=== PATIENT | male | born 1990 | race Hispanic/Latino ===

== ENCOUNTER 2024-01-26 14:21 | Emergency (ER) | payer SELFPAY ==
[2024-01-26 15:13] LABS: Absolute Basophils 0.1 K/uL (0-0.5); Absolute Eosinophils 0.2 K/uL (0-0.5); Absolute Lymphocytes (CBC) 1.9 K/uL (0.7-4.9); Absolute Monocytes 0.6 K/uL (0.1-1.3); Hematocrit 44.2 % (39.6-49.0); Lymphocytes % 24.3 % (15.3-44.8); MCH 30.8 pg (27.0-35.0); MCHC 34.1 g/dL (32.0-36.0); MCV 90.5 fL (80-100); MPV 9.8 fL (7.6-11.3); Monocytes % 7.9 % (3.3-12.3); Neutrophils % 63.8 % (41.7-73.7); Platelets 199 thou/uL (152-406); RBC Red Blood Cell Count 4.88 M/uL (4.33-5.43); Red Cell Distribution Width 12.6 % (12.1-15.2)
[2024-01-26 15:31] LABS: ALT/SGPT 33 U/L (16-61); AST/SGOT 20 U/L (15-37); Albumin 3.6 g/dL (3.4-5.0); Alkaline Phosphatase 64 U/L (45-117); Anion Gap 8.8 mEq/L (5.0-15.0); BUN Blood Urea Nitrogen 12 mg/dL (7-18); Bicarbonate 23 mEq/L (21-32); Bilirubin Total 0.3 mg/dL (0.2-1.0); Creatine Phosphokinase 53 U/L (39-308); Globulin 3.5 g/dL (2.3-3.5); Glomerular Filtration Rate 102 ml/min (=/>90); Glucose Level 88 mg/dL (74-106); Magnesium 1.9 mg/dL (1.6-2.4); Potassium 3.8 mEq/L (3.5-5.1); Protein, Total 7.1 g/dL (6.4-8.2); Sodium Level 138 mEq/L (136-145)
--- NOTE | 2024-01-26 15:34 | RAD REPORT ---
Procedure: Chest Single View HISTORY: Palpitations COMPARISON: none FINDINGS: The lungs appear clear of acute infiltrate. No significant pleural effusion noted. The heart is normal size. IMPRESSION: No acute abnormality is displayed.
[2024-01-26 15:36] LABS: Bilirubin Direct < 0.2 mg/dL (0-0.2); Bilirubin Indirect, Calculated 0.1 mg/dL (0.2-0.8); Troponin High Sensitivity < 3.0 pg/mL (<58.9)
--- NOTE | 2024-01-26 16:39 | EDPHYS ---
Physician Documentation [facility] Name: Malcolm Barrow Age: 33 yrs Sex: Male : 1990 Arrival Date: 01/26/2024 Time: 14:21 Bed 13 Private MD: ED Physician Medhat Meadows HPI: 01/25 16:49 This 33 yrs old Male presents to ER via EMS with complaints of Dizziness. 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 EMS reports pt was flush upon their arrival, but has improved after IV fluids. Pt states he still has a little cramping to abd and tingling in lips, but other symptoms have resolved. . Historical: - Allergies: 14:36 No Known Allergies; ss - Home Meds: 14:36 None [Active]; ss - PMHx: 14:36 None; ss - PSHx: 14:36 None; ss - Immunization history:: Adult Immunizations up to date. - Infectious Disease History:: Denies. - Social history:: Smoking status: Patient denies any tobacco usage or history of. ROS: 16:49 Constitutional: As per HPI kb Exam: 15:16 Constitutional: This is a well developed, well nourished patient who is awake, alert, kb and in no acute distress. Head/Face: Normocephalic, atraumatic. ENT: Moist Mucous membranes Cardiovascular: Regular rate Respiratory: Respirations even and unlabored. No increased work of breathing. Talking in full sentences Abdomen/GI: Soft, non-tender. No distention Skin: Warm, dry with normal turgor. Normal color. MS/ Extremity: Pulses equal, no cyanosis. Neurovascular intact. Full, normal range of motion. Neuro: Awake and alert, GCS 15, oriented to person, place, time, and situation. 15:16 ECG was reviewed by the Attending Physician. Vital Signs: 14:32 Pulse 67; Resp 16; Temp 97.9(TE); Pulse Ox 100% on R/A; Weight 61.23 kg; Height 5 ft. ss 11 in. ; Pain 3/10; 14:35 BP 118 / 82; Pulse 78; Resp 18; Pulse Ox 97% on R/A; ph 15:07 BP 107 / 86; Pulse 87; Resp 18; Pulse Ox 98% on R/A; ph 16:20 BP 137 / 85; Pulse 89; Resp 18; Pulse Ox 98% on R/A; ph 14:32 Body Mass Index 18.83 (61.23 kg, 180.34 cm) ss 14:32 Pain Scale: Adult ss MDM: 14:25 Medical Screening Exam initiated kb 16:51 Differential diagnosis: arrythmia, acute mi, dehydration, rhabdomyolysis, stress kb reaction. Data reviewed: vital signs, nurses notes. Historians other than the Patient: EMS: Intense EMS. Counseling: I had a detailed discussion with the patient and/or guardian regarding the historical points, exam findings, and any diagnostic results supporting the discharge/admit diagnosis, lab results, radiology results, the need for outpatient follow up, a family practitioner, to return to the emergency department if symptoms worsen or persist or if there are any questions or concerns that arise at home. ED course: Pt states he is back to normal, all symptoms have resolved. States he has been under more stress than normal at home. Denies chest pain, shortness of breath . 01/25 14:25 Order name: Basic Metabolic Panel; Complete Time: 15:47 kb 01/25 14:25 Order name: CBC with Diff; Complete Time: 15:16 kb 01/25 14:25 Order name: LFT's; Complete Time: 15:47 kb 01/25 14:25 Order name: Magnesium; Complete Time: 15:47 kb 01/25 14:25 Order name: Troponin HS; Complete Time: 15:47 kb 01/25 14:25 Order name: CPK; Complete Time: 15:47 kb 01/25 14:25 Order name: XRAY Chest (1 view); Complete Time: 15:47 kb 01/25 14:25 Order name: EKG; Complete Time: 14:26 kb 01/25 14:25 Order name: Cardiac monitoring; Complete Time: 15:06 kb 01/25 14:25 Order name: EKG - Nurse/Tech; Complete Time: 15:06 kb 01/25 14:25 Order name: IV Saline Lock; Complete Time: 15:06 kb 01/25 14:25 Order name: Labs collected and sent; Complete Time: 15:06 kb 01/25 14:25 Order name: O2 Per Protocol; Complete Time: 15: kb 01/25 14:25 Order name: O2 Sat Monitoring; Complete Time: 15:06 kb EC:16 Rate is 78 beats/min. Rhythm is regular. QRS [place] is Normal. NV interval is normal at kb 156 msec. QRS interval is normal at 78 msec. QT interval is normal at 417 msec. Administered Medications: No medications were administered Disposition: 18:11 Co-signature as Attending Physician, Medhat Meadows MD I reviewed the patient's care rn provided by the Advanced Practice Provider and agree with the diagnosis and treatment plan. Disposition Summary: 01/26/24 16:38 Discharge Ordered Notes: Location: Home kb Condition: Stable kb Diagnosis - Palpitations kb - Dizziness and giddiness kb - Abdominal pain, Generalized kb Followup: kb - With: Emergency Department - When: As needed - Reason: Worsening of condition Followup: kb - With: Private Physician - When: 2 - 3 days - Reason: Recheck today's complaints, Continuance of care, Re-evaluation by your physician Discharge Instructions: - Discharge Summary Sheet kb - Panic Attack, [id number] kb - Palpitations, [id number] kb - Dizziness, [id number] kb Forms: - Medication Reconciliation Form kb - Antibiotic Education kb - Prescription Opioid Use kb - Patient Portal Instructions kb - Leadership Thank You Letter kb Signatures: Dispatcher [employer] Dania Mar, LIDAR TECHNICIAN-C LIDAR TECHNICIAN-Medhat Motta MD MD rn Blanchard, [place], Yesenia Wiseman RN, RN RN ph
--- NOTE | 2024-01-26 16:39 | ER ---
Nurse's Notes [facility] Name: Malcolm Barrow Age: 33 yrs Sex: Male : 1990 Arrival Date: 01/26/2024 Time: 14:21 Bed 13 Private MD: Diagnosis: Palpitations;Dizziness and giddiness;Abdominal pain, Generalized Presentation: 01/25 14:32 Chief complaint: EMS states: sudden onset of dizziness, tingling to bilateral upper ss extremities. EMS reports that patient was pale upon arrival to scene. Pt states feeling better at this time other than mild abd discomfort. Coronavirus screen: Client denies travel out of the [place] in the last 14 days. Ebola Screen: Patient denies exposure to infectious person. Patient denies travel to an Ebola-affected area in the 21 days before illness onset. 14:32 Method Of Arrival: EMS: [facility] 14:35 Ebola Screen: No symptoms or risks identified at this time. Initial Sepsis Screen: Does ph the patient meet any 2 criteria? No. Patient's initial sepsis screen is negative. Does the patient have a suspected source of infection? No. Patient's initial sepsis screen is negative. Risk Assessment: Do you want to hurt yourself or someone else? Patient reports no desire to harm self or others. Onset of symptoms was January 26, 2024. 14:35 Acuity: ANAHY 3 ph 14:35 Method Of Arrival: EMS: [facility] Historical: - Allergies: 14:36 No Known Allergies; ss - Home Meds: 14:36 None [Active]; ss - PMHx: 14:36 None; ss - PSHx: 14:36 None; ss - Immunization history:: Adult Immunizations up to date. - Infectious Disease History:: Denies. - Social history:: Smoking status: Patient denies any tobacco usage or history of. Screenin:38 [facility] ED Fall Risk Assessment (Adult) History of falling in the last 3 months, ph including since admission No falls in past 3 months (0 pts) Confusion or Disorientation No (0 pts) Intoxicated or Sedated No (0 pts) Impaired Gait No (0 pts) Mobility Assist Device Used No (0 pt) Altered Elimination No (0 pt) Score/Fall Risk Level 0 - 2 = Low Risk Oriented to surroundings, Maintained a safe environment, Hourly rounding (assess needs \T\ fall precautionary measures) done. Abuse screen: Denies threats or abuse. Denies injuries from another. Nutritional screening: No deficits noted. Tuberculosis screening: No symptoms or risk factors identified. Assessment: 15:06 General: Appears in no apparent distress. comfortable, Behavior is calm, cooperative, ph appropriate for age. Pain: Denies pain. Neuro: Level of Consciousness is awake, alert, obeys commands, Oriented to person, place, time, situation. 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 Respiratory: Airway is patent Respiratory effort is even, unlabored, Respiratory pattern is regular, symmetrical. GI: No signs and/or symptoms were reported involving the gastrointestinal system. Derm: Skin is pink, warm \T\ dry. 16:20 Reassessment: Patient appears in no apparent distress at this time. Patient and/or ph family updated on plan of care and expected duration. Pain level reassessed. Patient is alert, oriented x 3, equal unlabored respirations, skin warm/dry/pink. Vital Signs: 14:32 Pulse 67; Resp 16; Temp 97.9(TE); Pulse Ox 100% on R/A; Weight 61.23 kg; Height 5 ft. ss 11 in. ; Pain 3/10; 14:35 BP 118 / 82; Pulse 78; Resp 18; Pulse Ox 97% on R/A; ph 15:07 BP 107 / 86; Pulse 87; Resp 18; Pulse Ox 98% on R/A; ph 16:20 BP 137 / 85; Pulse 89; Resp 18; Pulse Ox 98% on R/A; ph 14:32 Body Mass Index 18.83 (61.23 kg, 180.34 cm) ss 14:32 Pain Scale: Adult ss Vitals: 15:07 Cardiac Rhythm Assessment Sinus rhythm. ph ED Course: 14:24 Patient arrived in ED. ss 14:25 Dania Barksdale FNP-C is PHCP. kb 14:25 Medhat Meadows MD is Attending Physician. kb 14:35 Yesenia Kyle RN is Primary Nurse. ph 14:36 Triage completed. ph 14:36 Arm band placed on right wrist. ss 14:36 Arm band placed on Patient placed in an exam room, on a stretcher, on pulse oximetry. ph 14:38 Patient has correct armband on for positive identification. Bed in low position. Call ph light in reach. Side rails up X 1. Client placed on continuous cardiac and pulse oximetry monitoring. NIBP monitoring applied. poiser on. Door closed. Noise minimized. 14:55 XRAY Chest (1 view) In Process Unspecified. EDMS 15:05 Initial lab(s) drawn, by me, sent to lab. EKG done, by ED staff, reviewed by Dania SMITH. Maintain EMS IV. Dressing intact. Good blood return noted. Site clean \T\ dry. Gauge \T\ site: 20 R hand. Flushed with 10 mL NS. 15:07 Provided Education on: Use of call light and estimated time for test results. ph 16:49 No provider procedures requiring assistance completed. IV discontinued, intact, ph bleeding controlled, No redness/swelling at site. Pressure dressing applied. Administered Medications: No medications were administered Medication: 14:38 VIS not applicable for this client. ph Outcome: 16:38 Discharge ordered by . kb 16:49 Patient left the ED. ph 16:49 Discharged to home ambulatory, ph 16:49 Condition: good 16:49 Discharge instructions given to patient, Instructed on discharge instructions, follow up and referral plans. Demonstrated understanding of instructions, follow-up care, Signatures: Dispatcher [employer] Dania Mar, LUIS XIONG-Minda Gomez, RN RN Yesenia Kyle RN RN ph
[2024-01-26 16:54] VITALS: TEMP 97.9
[2024-01-26 16:56] VITALS: O2SAT 98
[2024-01-26 16:57] VITALS: BP 137/85
--- NOTE | 2024-01-28 11:31 | EKG ---
Test Date: 2024-01-26 Test Time: 15:00:36 Detail Sergeant: PH MEASUREMENT RESULTS: Intervals: Rate: 78 OH: 156 QRSD: 78 QT: 366 QTc: 417 [place]: P: 54 OH: 156 QRS: 33 T: 19 INTERPRETIVE STATEMENTS: Normal sinus rhythm Normal ECG No previous ECG available for comparison Electronically Signed On 01-28-24 11:28:26 SHRINKING MACHINE OPERATOR by Nando Pantoja
== END 2024-01-26 16:49 | disposition home or self-care (01) ==
LOC: ER 14:21
DX: R00.2 Palpitations (principal); R10.84 Generalized abdominal pain
CPT/HCPCS: 36415; 71045; 80048; 80076; 82550; 83735; 84484; 85025; 93005; 99284